=== PATIENT | female | born 1945 | race Caucasian/White ===

== ENCOUNTER 2017-10-20 19:13 | Emergency (ER) | payer OTHER ==
[2017-10-20] MEDS ORDERED: diazePAM CARPU-JECT 10 MG/2 ML DISP.SYRIN IVPUSH ONE (19:27)
[2017-10-20] MEDS ORDERED: diazePAM CARPU-JECT 10 MG/2 ML DISP.SYRIN ONE (19:29)
[2017-10-20 19:30] VITALS: TEMP 98.8; BMI 30.4
--- NOTE | 2017-10-20 19:36 | PDOC ---
History of Present Illness - General History Source: Patient Exam Limitations: No Limitations - History of Present Illness Initial Comments: The patient is a 72 year old female with a significant past medical history of Thyroidectomy, diabetes, diverticulosis, h. Pylori gastritis, colon polyps, HTN , HLD, NAFLD, and anxiety who presents to the emergency department for evaluation of dysphagia. The patient reports throat pain and dysphagia after eating rice, noodles, and small cut pieces of beef for dinner. She states that the food feels stuck in her throat. She reports a squeezing sensation in her throat making inspiration difficult. The patient reports associated symptoms of nausea and vomiting. She reports the urge to vomit but is unable to secondary to the feeling of food lodged in her throat. At presentation, the patient is gagging and teary-eyed. Denies any radiation to thyroid. The patient denies chest pain, shortness of breath, headache, and dizziness. Denies fevers, chills, diarrhea, and constipation. Denies dysuria, frequency, urgency, and hematuria. Allergies: Ibuprofen, Penicillins, naproxen, aspirin, naproxen sodium, ASA Past surgical history: Thyroidectomy Social history: No reported cigarette, alcohol, or drug use. PCP: Dr. Mateusz Rodriguez ([phone]) <Mark Pérez - Last Filed: 10/20/17 19:36> <Ok Elliott - Last Filed: 10/21/17 01:33> - General Chief Complaint: Dysphagia Stated Complaint: UNABLE TO SWALLOW Time Seen by Provider: 10/20/17 19:26 Past History <Mark Pérez - Last Filed: 10/20/17 19:36> - Past Medical History Anemia: No Asthma: No Cancer: No Cardiac Disorders: No CVA: No COPD: No CHF: No Dementia: No Diabetes: Yes GI Disorders: Yes (DIVERTICULOSIS; H. PYLORI GASTRITIS,COLON POLYPS) Disorders: No HTN: Yes Hypercholesterolemia: Yes Liver Disease: Yes (NAFLD) Psychiatric Problems: Yes (ANXIETY.) Seizures: No Thyroid Disease: Yes (THYROIDECTOMY) - Surgical History Abdominal Surgery: Yes (Right Inguinal Hernia Repair, colon resection, abdominoplasty) Appendectomy: Yes (COLONOSCOPY WITH POLYPECTOMIES) Cardiac Surgery: No Cholecystectomy: Yes (OPEN) Lung Surgery: No Neurologic Surgery: No Orthopedic Surgery: Yes (bilateral carpal tunnel release; LEFT KNEE REPLACEMENT) - Suicide/Smoking/Psychosocial Hx Smoking Status: Yes Smoking History: Never smoked Have you smoked in the past 12 months: No Number of Cigarettes Smoked Daily: 0 If you are a former smoker, when did you quit?: 11yrs Hx Alcohol Use: Yes Drug/Substance Use Hx: No Substance Use Type: None Hx Substance Use Treatment: No <Ok Elliott - Last Filed: 10/21/17 01:33> - Past Medical History Allergies/Adverse Reactions: Allergies Allergy/AdvReac Type Severity Reaction Status Date / Time ibuprofen Allergy Severe Difficulty Verified 11/06/14 11:55 Breathing Penicillins Allergy Severe Difficulty Verified 11/06/14 11:55 Breathing naproxen Allergy Unknown Verified 11/06/14 11:55 aspirin Allergy Unverified 04/08/15 12:07 naproxen sodium [From Aleve] Allergy Unverified 04/08/15 12:07 ASA Allergy Mild Uncoded 11/06/14 11:55 Home Medications: Ambulatory Orders Amlodipine Besylate/Benazepril [Lotrel 5-20 mg Capsule] 1 cap PO DAILY 07/19/13 Fenofibrate Nanocrystallized [Fenofibrate] 1 tab PO DAILY 01/03/14 Gabapentin 800 mg PO BID 01/03/14 Docosahexanoic Acid/Epa [Fish Oil Softgel] 1 cap PO DAILY 03/14/14 Furosemide [Lasix -] 1 tab PO WEEKLY 03/14/14 Ginkgo Biloba Extract [Ginkgo Biloba] 120 mg PO DAILY 03/14/14 Metoprolol Succinate [Toprol XL -] 50 mg PO HS 03/14/14 Pravastatin Sodium 40 mg PO HS 03/14/14 Levothyroxine [Synthroid -] 100 mcg PO DAILY@0700 #30 tablet 11/10/14 Buspirone HCl [Buspar -] 15 mg PO BID 12/18/15 Calcium Cit/Mag/D3/Zn/Baseball Winder/Kwasi [Calcium Citrate Plus Tablet] 1 each PO DAILY 01/25 Cyanocobalamin (Vitamin B-12) [Vitamin B12] 5,000 mcg PO DAILY 12/18/15 Folic Acid/Multivit,Iron,Mountain Bike Guide [One Daily Complete Tablet] 1 each PO DAILY 12/17 Metformin HCl [Glucophage] 1,000 mg PO BID 12/18/15 Ranitidine [Zantac -] 150 mg PO DAILY 12/18/15 Azithromycin 250 mg PO DAILY #4 tablet 12/19/15 Review of Systems - Review of Systems Able to Perform ROS?: Yes Comments:: GENERAL/CONSTITUTIONAL: No fever or chills. No weakness. HEAD, EYES, EARS, NOSE AND THROAT: (+)Throat pain. No change in vision. No ear pain or discharge. No sore throat. CARDIOVASCULAR: No chest pain or shortness of breath. RESPIRATORY: No cough, wheezing, or hemoptysis. GASTROINTESTINAL: (+)Nausea. (+)Vomiting. No diarrhea or constipation. GENITOURINARY: No dysuria, frequency, or change in urination. MUSCULOSKELETAL: No joint or muscle swelling or pain. No neck or back pain. SKIN: No rash NEUROLOGIC: No headache, vertigo, loss of consciousness, or change in strength/ sensation. ENDOCRINE: No increased thirst. No abnormal weight change. HEMATOLOGIC/LYMPHATIC: No anemia, easy bleeding, or history of blood clots. ALLERGIC/IMMUNOLOGIC: No hives or skin allergy. <Mark Pérez - Last Filed: 10/20/17 19:36> *Physical Exam - Vital Signs Last Vital Signs Temp Pulse Resp BP Pulse Ox 98.8 F 110 H 18 175/104 100 10/20/17 19:15 10/20/17 19:15 10/20/17 19:15 10/20/17 19:15 10/20/17 19:15 - Physical Exam Comments: GENERAL: (+)Mild distress, spitting up in bowl. Awake, alert, and fully oriented. HEAD: No signs of trauma EYES: PERRLA, EOMI, sclera anicteric, conjunctiva clear ENT: Auricles normal inspection, hearing grossly normal, nares patent, oropharynx clear without exudates. Moist mucosa NECK: Normal ROM, supple, no lymphadenopathy, JVD, or masses LUNGS: Breath sounds equal, clear to auscultation bilaterally. No wheezes, and no crackles HEART: Regular rate and rhythm, normal S1 and S2, no murmurs, rubs or gallops ABDOMEN: Soft, nontender, normoactive bowel sounds. No guarding, no rebound. No masses EXTREMITIES: Normal range of motion, no edema. No clubbing or cyanosis. No cords, erythema, or tenderness NEUROLOGICAL: Cranial nerves II through XII grossly intact. Normal speech, normal gait SKIN: Warm, Dry, normal turgor, no rashes or lesions noted. <Mark Pérez - Last Filed: 10/20/17 19:36> - Vital Signs Last Vital Signs Temp Pulse Resp BP Pulse Ox 98.8 F 110 H 18 175/104 100 10/20/17 19:15 10/20/17 19:15 10/20/17 19:15 10/20/17 19:15 10/20/17 19:15 <Ok Elliott - Last Filed: 10/21/17 01:33> ED Treatment Course - Medications Given in the ED: ED Medications Discontinued Medications Generic Name Dose Route Start Last Admin Trade Name Vitaly PRN Reason Stop Dose Admin Diazepam 5 mg 10/20/17 19:27 10/20/17 19:32 Valium Injection - IVPUSH 10/20/17 19:28 5 mg ONCE ONE Administration <Mark Pérez - Last Filed: 10/20/17 19:36> Medical Decision Making - Medical Decision Making 10/21/17 01:32 esophageal food impaction reolved with valium GI fu no solids <Ok Elliott - Last Filed: 10/21/17 01:33> *DC/Admit/Observation/Transfer - Attestations Scribe Attestion: Documentation prepared by Mark Pérez, acting as medical art therapist for Ok Elliott MD. <Mark Pérez - Last Filed: 10/20/17 19:36> <Ok Elliott - Last Filed: 10/21/17 01:33> Diagnosis at time of Disposition: Food impaction of esophagus Qualifiers: Encounter type: initial encounter Qualified Code(s): T18.128A - Food in esophagus causing other injury, initial encounter - Discharge Dispostion Disposition: HOME Condition at time of disposition: Stable - Referrals Referrals: Eleno Lindsey MD [Staff Physician] - Ricky Dawson MD [Staff Physician] - - Patient Instructions Printed Discharge Instructions: DI for Removal of Foreign Body From Esophagus - Post Discharge Activity
[2017-10-20 20:14] VITALS: BP 154/83; PULSE 95
== END 2017-10-20 20:14 | disposition home or self-care (01) ==
LOC: FER 19:13
PROC: 3E033GC Introduction of Other Therapeutic Substance into Peripheral Vein, Percutaneous Approach (ICD-10-PCS; principal; 2017-10-20)
DX: T18.128A Food in esophagus causing other injury, initial encounter (principal); X58.XXXA Exposure to other specified factors, initial encounter; Y93.89 Activity, other specified; Y92.9 Unspecified place or not applicable; E07.9 Disorder of thyroid, unspecified; E11.9 Type 2 diabetes mellitus without complications; I10 Essential (primary) hypertension; E78.5 Hyperlipidemia, unspecified; F41.0 Panic disorder [episodic paroxysmal anxiety]
CPT/HCPCS: 96374; 99282-25

== ENCOUNTER 2022-02-23 05:23 | Day surgery (SDC) | payer OTHER ==
[2022-02-21 09:49] VITALS: BMI 32.0
[2022-02-23 11:25] VITALS: PULSE 68; RESP 18
[2022-02-23 12:19] VITALS: BP 144/72; TEMP 98.1
== END 2022-02-23 12:19 | disposition home or self-care (01) ==
LOC: JASU-ENDO 05:23
PROVIDERS: ATTEND Internal Medicine Gastroenterology
PROC: 0DB98ZX Excision of Duodenum, Via Natural or Artificial Opening Endoscopic, Diagnostic (ICD-10-PCS; 2022-02-23)
PROC: 0DB78ZX Excision of Stomach, Pylorus, Via Natural or Artificial Opening Endoscopic, Diagnostic (ICD-10-PCS; 2022-02-23)
PROC: 0DB28ZX Excision of Middle Esophagus, Via Natural or Artificial Opening Endoscopic, Diagnostic (ICD-10-PCS; 2022-02-23)
PROC: 0DB38ZX Excision of Lower Esophagus, Via Natural or Artificial Opening Endoscopic, Diagnostic (ICD-10-PCS; 2022-02-23)
PROC: 0DJD8ZZ Inspection of Lower Intestinal Tract, Via Natural or Artificial Opening Endoscopic (ICD-10-PCS; principal; 2022-02-23 11:00)
DX: Z12.11 Encounter for screening for malignant neoplasm of colon (principal); K57.30 Diverticulosis of large intestine without perforation or abscess without bleeding; K64.8 Other hemorrhoids; K29.50 Unspecified chronic gastritis without bleeding; K21.00 Gastro-esophageal reflux disease with esophagitis, without bleeding; E11.9 Type 2 diabetes mellitus without complications; I10 Essential (primary) hypertension; Z79.84 Long term (current) use of oral hypoglycemic drugs; Z86.010 Personal history of colon polyps; Z98.0 Intestinal bypass and anastomosis status; Z83.71 Family history of colonic polyps
CPT/HCPCS: 43239; G0105; 82962; 88305-TC; 88342-TC